=== PATIENT | male | born 1980 | race Caucasian/White ===

== ENCOUNTER 2018-05-11 06:36 | Emergency (ER) | payer OTHER ==
[~2018-05-11] VITALS: Ht 190.5 cm; Wt 113.4 kg
[2018-05-11] MEDS ORDERED: LISINOPRIL20 MG PO (06:44)
[2018-05-11] MEDS ORDERED: PROTONIX40 M1 PO (06:45)
[2018-05-11 07:40] LABS: ABSOLUTE EOSINOPHILS 0.1 thou/uL (0.0-0.7); ABSOLUTE LYMPHOCYTES 1.5 thou/uL (0.8-5.3); ABSOLUTE MONOCYTES 0.5 thou/uL (0.0-1.2); BASOPHILS 0.8 %; EOSINOPHILS 1.4 %; HEMATOCRIT 54.5 % (42.0-52.0); HEMOGLOBIN 18.4 gm/dL (14.0-18.0); LYMPHOCYTES 29.3 %; MCH 29.8 pg (26.0-34.0); MCHC 33.8 g/dL (28.0-37.0); MONOCYTES 10.4 %; MPV 7.2 fl. (7.2-11.1); NUCLEATED RBCS 0 /100WBC; PLATELET COUNT* 176 thou/uL (150-400); POLYS 58.1 %; RDW-CV 13.3 % (10.5-14.5); WBC 5.1 thou/uL (4.0-11.0)
[2018-05-11 07:48] LABS: CALCIUM 8.8 mg/dL (8.5-10.1); CREATININE 1.1 mg/dL (0.6-1.3); POTASSIUM 4.1 mmol/L (3.5-5.1)
[2018-05-11 07:50] LABS: PROTIME 10.4 Seconds (9.20-11.50)
[2018-05-11 07:53] LABS: ALBUMIN 3.5 g/dL (3.4-5.0); TOTAL BILIRUBIN 0.6 mg/dL (<0.1-1.0); TOTAL PROTEIN 7.4 g/dL (6.4-8.2)
[2018-05-11 09:00] VITALS: BP 113/73
--- NOTE | 2018-05-11 10:41 | EKG ---
[place] [address] ELECTROCARDIOGRAM REPORT Name: JESSA BELL Room: [facility] ([place], [place])Emily#: [id number] Admission: 05/11/18 Attend Phys: Discharge: 05/11/18 Date of : 80 Report #: [id number] THIS REPORT FOR: //name// [facility] ED Test Date: 2018-05-11 Test Time: 07:33:10 Pat Name: JESSA SALASDIAMOND Department: Room: Gender: M Academic Intern: Yanira CANO : 1980 Requested By: Manuel Cabrera Order Number: [id number] MD: Mingo Art Measurements Intervals Clarinda Rate: 75 P: 18 AK: 165 QRS: -19 QRSD: 92 T: 11 QT: 372 QTc: 416 Interpretive Statements Sinus rhythm Borderline left axis deviation ST elev, probable normal early repol pattern No previous ECG available for comparison Electronically Signed On 05-11-2018 10:40:49 CDT by Mingo Art [email or web address] <ELECTRONICALLY SIGNED> By: Mingo Art MD, [facility] 05/11/18 1040 0733 2 Mingo Art MD, FACC /EPI
== END 2018-05-11 09:00 | disposition home or self-care (01) ==
LOC: M.ERS 06:36
PROVIDERS: Family Medicine
DX: R10.9 Unspecified abdominal pain (principal); I10 Essential (primary) hypertension; K21.9 Gastro-esophageal reflux disease without esophagitis